=== PATIENT | female | born 1990 | race Caucasian/White ===

== ENCOUNTER 2018-04-06 09:13 | Emergency (ER) | payer OTHER ==
[~2018-04-06] VITALS: Ht 154.9 cm; Wt 66.0 kg
[2018-04-06 09:17] VITALS: BP 152/100
[2018-04-06] MEDS ORDERED: ACETAMINOPHEN 500 MG TABLET ONE (10:35)
[2018-04-06] MEDS ORDERED: ACETAMINOPHEN 500 MG TABLET PO ONE (11:00)
== END 2018-04-06 10:51 | disposition home or self-care (01) ==
LOC: ED 10:30
DX: O26.892 Other specified pregnancy related conditions, second trimester (principal); S06.0X0A Concussion without loss of consciousness, initial encounter; S16.1XXA Strain of muscle, fascia and tendon at neck level, initial encounter; Z3A.18 18 weeks gestation of pregnancy; V49.49XA Driver injured in collision with other motor vehicles in traffic accident, initial encounter; Y93.89 Activity, other specified; Y92.89 Other specified places as the place of occurrence of the external cause; Y99.8 Other external cause status
CPT/HCPCS: 76815; 99284

== ENCOUNTER → 2018-08-31 | Outpatient (CLI) | payer OTHER | END | disposition home or self-care (01) | LOC: CFH 08:56 | PROVIDERS: ATTEND Internal Medicine Cardiovascular Disease | DX: I37.1 Nonrheumatic pulmonary valve insufficiency (principal); Z87.891 Personal history of nicotine dependence | CPT/HCPCS: 93306 ==

== ENCOUNTER 2018-09-05 10:17 | Inpatient (IN) | payer OTHER ==
[~2018-09-05] VITALS: Ht 154.9 cm; Wt 74.0 kg
[2018-09-07] MEDS ORDERED: OXYTOCIN 30U/ 0.9% NaCL 500ML 500 ML IV ONE (05:05)
[2018-09-07] MEDS ORDERED: D5%-LACTATED RINGERS 1,000 ML IV SCH (05:05)
[2018-09-07] MEDS ORDERED: OXYTOCIN 30U/ 0.9% NaCL 500ML 500 ML IV PRN (05:05)
[2018-09-07 05:12] VITALS: BP 117/56
[2018-09-07] MEDS ORDERED: IRON1TAB37 PO (05:20)
[2018-09-07] MEDS ORDERED: PREN-3 PO (05:20)
[2018-09-07] MEDS ORDERED: VALA10004 PO (05:20)
[2018-09-07] MEDS ORDERED: FENTANYL PF 100 MCG/2ML IV PRN (05:30)
[2018-09-07] MEDS ORDERED: CALCIUM CARBONATE 500 MG TAB.CHEW PO PRN (05:30)
[2018-09-07] MEDS ORDERED: FENTANYL PF 100 MCG/2ML IVPush PRN (05:30)
[2018-09-07] MEDS: LACTATED RINGERS 1,000 ML IV SCH ×3 (05:30→11:18)
[2018-09-07] MEDS ORDERED: ONDANSETRON 2MG/ML, 2ML IVPush PRN (05:30)
[2018-09-07] MEDS ORDERED: NEWBORN KIT ONE (05:43)
[2018-09-07] MEDS ORDERED: OXYTOCIN 30U/ 0.9% NaCL 500ML 500 ML ONE (05:43)
[2018-09-07 05:46] LABS: BASOPHILS # (AUTO) 0.04 x10^3/uL (0-0.1); BASOPHILS % (AUTO) 0 % (0-1); EOSINOPHILS # (AUTO) 0.08 x10^3/uL (0-0.4); EOSINOPHILS % (AUTO) 1 % (1-7); LYMPHOCYTES # (AUTO) 2.24 x10^3/uL (1-3.4); LYMPHOCYTES % (AUTO) 23 % (22-44); MD NO; MEAN CORPUSCULAR HEMOGLOBIN 31.5 pg (27.0-34.8); MEAN CORPUSCULAR VOLUME 92.5 fL (80-100); MEAN PLATELET VOLUME 7.1 fL (7.4-10.4); MONOCYTES # (AUTO) 0.56 x10^3/uL (0.2-0.8); MONOCYTES % (AUTO) 6 % (2-9); NEUTROPHILS # (AUTO) 6.95 x10^3/uL (1.8-6.8); NEUTROPHILS % (AUTO) 70 % (42-75); PLATELET COUNT 321 x10^3/uL (130-400); RED CELL DISTRIBUTION WIDTH 17.2 % (9.6-15.2)
[2018-09-07] MEDS ORDERED: FENTANYL/BUPIV./NS/PF 250 ML EPIDCONT SCH ×2 (07:10→10:59)
[2018-09-07] MEDS ORDERED: FENTANYL PF 500 MCG, BUPIVACAINE/PF 0.5%, 30ML 62.5 ML in SODIUM CHLORIDE 0.9% 177.5 ML EPIDCONT SCH (09:30)
[2018-09-07] MEDS ORDERED: BUPIVACAINE 0.25% ONE (10:35)
[2018-09-07] MEDS ORDERED: LACTATED RINGERS 1,000 ML IV SCH (10:59)
[2018-09-07] MEDS ORDERED: EPHEDRINE 50 MG/ML, 1ML IVPush PRN (11:00)
[2018-09-07] MEDS ORDERED: LACTATED RINGERS 1,000 ML IVBOLUS PRN (11:00)
[2018-09-07] MEDS: OXYTOCIN 30U/ 0.9% NaCL 500ML 500 ML IV SCH (16:17)
[2018-09-07] MEDS ORDERED: MISOPROSTOL 200 MCG TABLET PR PRN (16:30)
[2018-09-07 19:30] VITALS: BP 102/67
[2018-09-07] MEDS: OXYcodone/APAP 5/325MG TABLET PO PRN (19:57)
[2018-09-07] MEDS: DOCUSATE 100 MG CAPSULE PO PRN (19:57)
[2018-09-07] MEDS: IBUPROFEN 600 MG TABLET PO PRN (19:57)
[2018-09-07 23:50] VITALS: BP 101/64
[2018-09-08] MEDS: OXYcodone/APAP 5/325MG TABLET PO PRN ×5 (01:28→17:01)
[2018-09-08 01:33] LABS: BASOPHILS # (AUTO) 0.06 x10^3/uL (0-0.1); BASOPHILS % (AUTO) 0 % (0-1); EOSINOPHILS # (AUTO) 0.07 x10^3/uL (0-0.4); EOSINOPHILS % (AUTO) 0 % (1-7); LYMPHOCYTES # (AUTO) 2.67 x10^3/uL (1-3.4); LYMPHOCYTES % (AUTO) 16 % (22-44); MD NO; MEAN CORPUSCULAR HEMOGLOBIN 31.1 pg (27.0-34.8); MEAN CORPUSCULAR HGB CONC 33.5 g/dL (32.4-35.8); MEAN CORPUSCULAR VOLUME 92.9 fL (80-100); MEAN PLATELET VOLUME 7.3 fL (7.4-10.4); MONOCYTES # (AUTO) 0.71 x10^3/uL (0.2-0.8); MONOCYTES % (AUTO) 4 % (2-9); NEUTROPHILS # (AUTO) 13.43 x10^3/uL (1.8-6.8); NEUTROPHILS % (AUTO) 79 % (42-75); PLATELET COUNT 276 x10^3/uL (130-400); RED BLOOD COUNT 3.77 x10^6/uL (3.82-5.3); RED CELL DISTRIBUTION WIDTH 17.5 % (9.6-15.2)
[2018-09-08] MEDS: OXYTOCIN 30U/ 0.9% NaCL 500ML 500 ML IV SCH ×2 (02:17→12:17)
[2018-09-08 05:00] VITALS: BP 108/64
[2018-09-08] MEDS: IBUPROFEN 600 MG TABLET PO PRN ×2 (05:29→13:13)
[2018-09-08 08:00] VITALS: BP 94/54
[2018-09-08] MEDS ORDERED: PRENATAL VIT/IRON/FA 1 EACH TABLET PO SCH (09:00)
[2018-09-08] MEDS: DOCUSATE 100 MG CAPSULE PO PRN (09:48)
[2018-09-08] MEDS ORDERED: IBUP-1222 PO (12:49)
[2018-09-08] MEDS ORDERED: OXYC-302 PO (12:49)
[2018-09-08 12:55] VITALS: BP 98/62
== END 2018-09-08 18:04 | disposition home or self-care (01) | DRG 807 ==
LOC: LDIP 09-07 04:59 → 2NW 09-07 19:12
PROVIDERS: ADMIT Obstetrics & Gynecology; ATTEND Obstetrics & Gynecology
PROC: 10E0XZZ Delivery of Products of Conception, External Approach (ICD-10-PCS; principal; 2018-09-07)
PROC: 3E0S3BZ Introduction of Anesthetic Agent into Epidural Space, Percutaneous Approach (ICD-10-PCS; 2018-09-07)
PROC: 00HU33Z Insertion of Infusion Device into Spinal Canal, Percutaneous Approach (ICD-10-PCS; 2018-09-07)
PROC: 10907ZC Drainage of Amniotic Fluid, Therapeutic from Products of Conception, Via Natural or Artificial Opening (ICD-10-PCS; 2018-09-07)
DX: O80 Encounter for full-term uncomplicated delivery (principal); Z37.0 Single live birth; Z3A.40 40 weeks gestation of pregnancy
CPT/HCPCS: 36415; 85025; 86850; 86870; 86900; 86922; 86923; G0378; J3010; J3490; J2590; J7050; J7120